=== PATIENT | male | born 1990 | race Native Hawaiian/Other Pacific Islander ===

== ENCOUNTER 2021-06-20 05:55 | Emergency (ER) | payer OTHER ==
[~2021-06-20] VITALS: Ht 170.2 cm; Wt 112.0 kg
[2021-06-20 05:57] VITALS: TEMP 99.3
[2021-06-20 06:14] LABS: PLATELET COUNT 264 K/uL (142-355)
[2021-06-20 07:12] LABS: POTASSIUM 3.8 mmol/L (3.6-5.2)
[2021-06-20 08:58] VITALS: BP 124/80
== END 2021-06-20 08:58 | disposition home or self-care (01) ==
LOC: ED 05:55
PROVIDERS: Hospitalist
DX: S20.212A Contusion of left front wall of thorax, initial encounter (principal); S00.81XA Abrasion of other part of head, initial encounter; V43.53XA Car driver injured in collision with pick-up truck in traffic accident, initial encounter; Y92.89 Other specified places as the place of occurrence of the external cause
CPT/HCPCS: 80048; 85027; 96365; 96375; 99284; J0690; J1885; J2270; Q9963